=== PATIENT | male | born 1980 | race Caucasian/White ===

== ENCOUNTER 2020-04-22 08:27 | Emergency (ER) | payer OTHER ==
[~2020-04-22] VITALS: Ht 188 cm; Wt 122.7 kg
[2020-04-22] MEDS ORDERED: LISINOPRIL20 M1 PO (10:05)
[2020-04-22] MEDS ORDERED: TRAMADOL HYDROC50 M1 PO (13:07)
[2020-04-22 13:42] VITALS: BP 128/81
== END 2020-04-22 13:42 | disposition home or self-care (01) | DRG 563 ==
LOC: ED 08:27
DX: S86.811A Strain of other muscle(s) and tendon(s) at lower leg level, right leg, initial encounter (principal); I10 Essential (primary) hypertension; X50.3XXA Overexertion from repetitive movements, initial encounter; Y93.02 Activity, running; Y92.832 Beach as the place of occurrence of the external cause

== ENCOUNTER 2021-09-12 06:46 | Emergency (ER) | payer OTHER ==
[~2021-09-12] VITALS: Ht 188 cm; Wt 116.8 kg
[~2021-09-12 06:46] MED LIST: AMOX/K CLAV875 M1 PO; LISINOPRIL20 M1 PO; TRAMADOL HYDROC50 M1 PO; VITAMIN D3400 UNI2 PO
[2021-09-12 07:52] VITALS: BP 132/87
[2021-09-12 08:00] VITALS: BP 141/90
[2021-09-12 08:31] VITALS: BP 146/91
[2021-09-12] MEDS ORDERED: HYDROCO/APAP1 TA9 PO (08:46)
[2021-09-12] MEDS ORDERED: FLEXERIL5 M1 PO (08:46)
[2021-09-12] MEDS ORDERED: MEDDOSEPAK PO (08:46)
[2021-09-12 08:52] VITALS: BP 146/91
== END 2021-09-12 08:58 | disposition home or self-care (01) | DRG 552 ==
LOC: ED 06:46
DX: M51.36 Other intervertebral disc degeneration, lumbar region (principal); I10 Essential (primary) hypertension

== ENCOUNTER 2022-09-05 07:55 | Day surgery (SDC) | payer OTHER ==
[~2022-09-05] VITALS: Ht 188 cm; Wt 108.9 kg
[~2022-09-05 07:55] MED LIST changes: +BANOPHEN25 MG PO; +FAMOTIDINE20 M3 PO; +FLEXERIL5 M1 PO; +GABAPENTIN300 M2; +GABAPENTIN300 M2 PO; +HYDROCO/APAP1 TA9 PO; +MEDDOSEPAK PO; +NARCAN4 MG/0.1 M; +PERCOCET 5/325M1 TAB PO; +PREDNISONE50 MG PO; +TIZANIDINE HCL4 M1 PO; +TIZANIDINE2 MG PO; +TORADOL PO
[2022-09-05] MEDS ORDERED: PERCOCET1 TA4 PO (09:10)
[2022-09-06 08:10] VITALS: BP 144/94
== END 2022-09-05 11:08 | disposition home or self-care (01) | DRG 552 ==
LOC: ORM 07:55
PROVIDERS: ATTEND Physical Medicine & Rehabilitation
DX: M54.16 Radiculopathy, lumbar region (principal); M51.26 Other intervertebral disc displacement, lumbar region; M51.36 Other intervertebral disc degeneration, lumbar region
CPT/HCPCS: J1100; Q9967